=== PATIENT | female | born 1975 | race Caucasian/White ===

== ENCOUNTER 2019-01-14 14:00 | Outpatient (CLI) | payer OTHER | END 2019-01-14 14:01 | disposition home or self-care (01) | LOC: SLEEPLAB 14:00 | PROVIDERS: ATTEND Student in an Organized Health Care Education/Training Program | DX: G47.00 Insomnia, unspecified (principal); R06.81 Apnea, not elsewhere classified; R53.83 Other fatigue; R51 Headache; E66.9 Obesity, unspecified; K21.9 Gastro-esophageal reflux disease without esophagitis; R06.83 Snoring; E11.9 Type 2 diabetes mellitus without complications | CPT/HCPCS: 95806 ==

== ENCOUNTER 2019-06-25 09:16 | Outpatient (CLI) | payer OTHER ==
--- NOTE | 2019-06-25 10:27 | ULT ---
BILATERAL RENAL ULTRASOUND: Date: 06/25/2019 COMPARISON: None. HISTORY: Left ureteral calcification. TECHNIQUE: Multiplanar [place] scale and color Doppler images were obtained in a renal ultrasound. FINDINGS: The kidneys are normal in echogenicity without hydronephrosis or shadowing calculi and measure 12.9 a nd 12.2 cm in length on the right and left, respectively. Limited visualization of the urinary bladder is unremarkable. Left ureteral jets were seen. IMPRESSION: Unremarkable renal ultrasound. POS: [facility]
--- NOTE | 2019-06-25 10:49 | RAD ---
SINGLE VIEW ABDOMEN: Date: 06/25/2019 HISTORY: Severe left flank pain radiating to left groin. FINDINGS: Single view of the abdomen shows a nonspecific, nonobstructed bowel gas pattern. Tubal ligation clips are seen. Multiple phleboliths are seen in the pelvis. Questionable small calcifications projecting over both renal shadows. These measure up to 3.0 mm in size. IMPRESSION: Possible small bilateral renal calculi. POS: [facility]
== END 2019-06-25 09:17 | disposition home or self-care (01) ==
LOC: SCSULT 09:16
PROVIDERS: ATTEND Urology
DX: N20.1 Calculus of ureter (principal)
CPT/HCPCS: 74018; 76770